=== PATIENT | female | born 1985 | race Caucasian/White ===

== ENCOUNTER 2017-12-16 13:38 | Emergency (ER) | payer SELFPAY ==
[~2017-12-16] VITALS: Ht 175.3 cm; Wt 71.3 kg
[2017-12-16 13:39] VITALS: BP 115/73
[2017-12-16] MEDS ORDERED: KETOROLAC 30 MG/1 ML ONE (14:46)
[2017-12-16] MEDS ORDERED: KETOROLAC 30 MG/1 ML IM ONE (15:00)
== END 2017-12-16 15:55 | disposition home or self-care (01) ==
LOC: ED 15:45
DX: M54.41 Lumbago with sciatica, right side (principal)
CPT/HCPCS: 96372; 99283; J1885